=== PATIENT | male | born 1960 | race African-American/Black ===

== ENCOUNTER → 2017-05-08 | Outpatient (CLI) | payer MEDICAID ==
[~2017-05-08] MED LIST: ADVA100A INH; ALBU.5I NEB; AMLO5TAB2 PO; ASPI81CH PO; ATOR40TA16 PO; BUSP5TAB PO; CLAR10CA3 PO; COZA25TA PO; FLUT1SPR5 EACH NARE; GABA300C5 PO; HYDR-3516 PO; METF500T PO; NEBULIZER1 MI1 NEB; OLOP1DRO EACH EYE; RANI150T PO; SILD20TA11 PO; TAMS5CAP PO; TRAM50TA PO; TRIA0.5O TOPICAL; VENTAER INH
[2017-05-08 12:19] LABS: AUTOMATED NEUTROPHIL # 8.4 TH/MM3 (1.8-7.7); BASOPHIL # 0.1 TH/MM3 (0-0.2); BASOPHIL % 0.5 % (0.0-2.0); EOSINOPHIL # 0.1 TH/MM3 (0-0.4); HEMO FLAGS DIFF FINAL; LYMPH % 23.4 % (9.0-44.0); LYMPHOCYTE # 2.9 TH/MM3 (1.0-4.8); MEAN CELL VOLUME 86.3 FL (80.0-100.0); MEAN CORPUSCULAR HEMOGLOBIN 28.8 PG (27.0-34.0); MEAN CORPUSCULAR HGB CONC 33.4 % (32.0-36.0); MONO % 6.7 % (0.0-8.0); NEUT % 68.4 % (16.0-70.0); PLATELET COUNT 291 TH/MM3 (150-450); RED BLOOD COUNT 4.51 MIL/MM3 (4.50-5.90); RED CELL DISTRIBUTION WIDTH 13.1 % (11.6-17.2); WHITE BLOOD COUNT 12.3 TH/MM3 (4.0-11.0)
== END ==
LOC: PHPRE 11:41
PROVIDERS: ATTEND Orthopaedic Surgery
DX: Z01.810 Encounter for preprocedural cardiovascular examination (principal); Z01.812 Encounter for preprocedural laboratory examination; M75.122 Complete rotator cuff tear or rupture of left shoulder, not specified as traumatic; M19.019 Primary osteoarthritis, unspecified shoulder
CPT/HCPCS: 36415; 85025

== ENCOUNTER 2017-05-11 06:36 | Observation (INO) | payer MEDICAID ==
[~2017-05-11] VITALS: Ht 167.6 cm; Wt 136.6 kg
[2017-05-11] VITALS (9 sets, daily range): BP systolic 121–133; BP diastolic 72–80; PULSE 75–92; RESP 18–20; TEMP 97.2–97.6; O2SAT 94–96
[~2017-05-11 06:36] MED LIST changes: -HYDR-3516 PO; -NEBULIZER1 MI1 NEB; -SILD20TA11 PO; -TRAM50TA PO; -TRIA0.5O TOPICAL
[2017-05-11] MEDS ORDERED: BUPIVACAINE/EPINEPHRINE 0.5% PF 10 ML VIAL ONE (07:13)
[2017-05-11] MEDS ORDERED: CLINDAMYCIN PHOS 900 MG/6 ML VIAL ONE (07:28)
[2017-05-11] MEDS ORDERED: VANCOMYCIN HCL 1000 MG VIAL ONE (07:28)
[2017-05-11] MEDS ORDERED: SODIUM CHLOR 0.9% 250 ML INJ 250 ML ONE (07:28)
[2017-05-11] MEDS ORDERED: SODIUM CHLORIDE 0.9% INJ 100 ML ONE ×2 (07:29→08:48)
[2017-05-11] MEDS ORDERED: MIDAZOLAM HCL 2 MG/2 ML VIAL ONE (07:53)
[2017-05-11] MEDS ORDERED: DEXAMETHASONE SOD PHOS 4 MG/ML VIAL ONE (07:53)
[2017-05-11] MEDS ORDERED: POVIDONE IODINE 5% (ANTISEPSIS KIT) 4 APPLICATIONS EACH NARE PRN (08:30)
[2017-05-11] MEDS ORDERED: INSULIN HUMAN REGULAR 1,000 UNITS/10 ML VIAL SQ PRN (08:30)
[2017-05-11] MEDS ORDERED: CHLORHEXIDINE GLUCONATE 2 % 1 PACK (2 CLOTHS) TOPICAL PRN (08:30)
[2017-05-11] MEDS ORDERED: METOPROLOL TARTRATE 25 MG TAB PO PRN (08:30)
[2017-05-11] MEDS ORDERED: LACTATED RINGER'S 1000 ML IV PRN (08:30)
[2017-05-11] MEDS ORDERED: SODIUM CHLORID 0.9% 500 ML IV PRN (08:30)
[2017-05-11] MEDS ORDERED: CHLORHEXIDINE GLUCONATE 4% SOLN 120 ML BTL TOPICAL SCH (08:45)
[2017-05-11] MEDS ORDERED: CLINDAMYCIN 900 MG/NS 100 ML IV SCH ×2 (08:45)
[2017-05-11] MEDS ORDERED: VANCOMYCIN 500 MG VIAL ONE (08:48)
[2017-05-11] MEDS ORDERED: VANCOMYCIN 1500 MG/NS 500 ML (for 85-99 kg) IV SCH ×2 (09:00)
[2017-05-11] MEDS ORDERED: KETOROLAC TROMETHAMINE 30 MG/ML (IVP) VIAL IM PRN (11:15)
[2017-05-11] MEDS ORDERED: ONDANSETRON HCL 4 MG/2 ML VIAL IV PUSH PRN (11:15)
--- NOTE | 2017-05-11 11:36 | MP ---
cc: YIMI MORALES M.D. DATE OF SURGERY: 05/11/[address] Yimi Morales. PREOPERATIVE DIAGNOSIS 1. Rotator cuff tear, left shoulder. 2. Osteoarthritis of the acromioclavicular joint, left shoulder. 3. Impingement syndrome, chronic, left shoulder. POSTOPERATIVE DIAGNOSIS 1. Rotator cuff tear, left shoulder. 2. Osteoarthritis of the acromioclavicular joint, left shoulder. 3. Impingement syndrome, chronic, left shoulder. PROCEDURE Anterior decompression with repair chronic rotator cuff tear and excision of distal clavicle. DETAILS OF PROCEDURE The patient was first placed on the operating table in the supine position. Adequate general anesthesia was administered by the anesthesiologist. The patient had already received a shoulder block in the holding unit. The patient was placed in a modified beach-chair position with a pad under the shoulder blade. The shoulder was then prepped and draped in the usual sterile fashion. A curved anterior superior incision was carried out for approximately 1 to 1-1/2 inches over the midportion between the acromial process and the acromioclavicular joint. The incision was taken down through the subcutaneous tissues and bleeding points were electrocauterized. The fascia was incised. The acromioclavicular joint was further exposed using sharp and blunt dissection. The disk between the joint did get excised as well which was extremely thick in nature. I also noted that there was some instability of the AC joint with any type of motion. The end of the distal clavicle was obviously eroded with severe changes of arthritis. 1 cm to 1.5 cm of distal clavicle was then excised using a power saw supplemented by hand instruments. The edges were then smoothed with the same instruments. The subclavicular space was then thoroughly irrigated and aspirated of all fluid. This allowed for greater exposure now of the acromial process which was extremely thickened and almost one inch in thickness causing severe impingement. A blunt retractor was placed under the surface after the additional fibers of the anterior deltoid were excised with electrocautery. The undersurface was then thinned as much as possible with a high-speed power bur. This allowed for complete exposure of the rotator cuff. There was a longitudinal tear through its fibers which required #2 FiberWire repair. With rotation the remainder of the rotator cuff did appear to be intact. After final further decompression the deltoid muscle was repaired with interrupted sutures of the same #2 FiberWire. The subcutaneous tissue was closed with running 3-0 Vicryl and skin edges approximated with a running 4-0 subcuticular suture. Sponge counts, needle counts and instrument counts were reported correct x2. The estimated blood loss was 25 cc. The patient tolerated the procedure well and was transferred to the recovery room in satisfactory and stable condition. He did have preoperative determination of a history of sleep apnea with no PAP machine present and we therefore elected to place him overnight for observation with discharge in the a.m. This was explained to the patient before going to sleep. Yimi Morales MD TJ/IRAJ /10:47 AM /11:16 AM
[2017-05-11] MEDS ORDERED: LACTATED RINGER'S 1000 ML INJ 1,000 ML IV ONE (12:00)
[2017-05-11] MEDS ORDERED: PROPOFOL 200 MG/20 ML AMP IV ONE (12:00)
[2017-05-11] MEDS ORDERED: ONDANSETRON HCL 4 MG/2 ML VIAL IV PUSH ONE (12:00)
[2017-05-11] MEDS: ACETAMINOPHEN/HYDROcodone 325 MG/5 MG TAB PO PRN ×2 (14:19→21:13)
[2017-05-11] MEDS ORDERED: DO NOT ADM ANY ANTICOAGULANT DRUGS PRN (14:30)
[2017-05-12] MEDS: ACETAMINOPHEN/HYDROcodone 325 MG/5 MG TAB PO PRN (08:46)
[2017-05-12 09:04] VITALS: BP 126/79; PULSE 71; RESP 22; TEMP 97.5; O2SAT 97
[2017-05-12 09:46] VITALS: RESP 18
[2017-05-16] MEDS ORDERED: HYDR-3516 PO (08:20)
[2017-05-28] MEDS ORDERED: TRIA0.5O TOPICAL (13:28)
== END 2017-05-12 10:55 | disposition home or self-care (01) ==
LOC: PHSDC 06:36 → PHEDA 12:57 → PH3A 13:07
PROVIDERS: ADMIT Orthopaedic Surgery; ATTEND Orthopaedic Surgery
DX: M75.102 Unspecified rotator cuff tear or rupture of left shoulder, not specified as traumatic (principal); M19.012 Primary osteoarthritis, left shoulder; M75.42 Impingement syndrome of left shoulder; I10 Essential (primary) hypertension; E11.9 Type 2 diabetes mellitus without complications; N40.0 Benign prostatic hyperplasia without lower urinary tract symptoms; G47.30 Sleep apnea, unspecified; F17.200 Nicotine dependence, unspecified, uncomplicated
CPT/HCPCS: 01610; 23120; 23412; 64418; G0378; J1100; J2250; J2405; J3010; J3370; J7040; J7050; J7120

== ENCOUNTER 2017-12-02 06:40 | Emergency (ER) | payer MEDICAID ==
[~2017-12-02] VITALS: Ht 167.6 cm; Wt 120.0 kg
[~2017-12-02 06:40] MED LIST changes: +ASPI-516 PO; -ASPI81CH PO; +HYDR-3516 PO; +TRIA0.5O TOPICAL
[2017-12-02 06:42] VITALS: BP 160/85; PULSE 80; RESP 22; TEMP 98.2; O2SAT 98
[2017-12-02] MEDS ORDERED: SODIUM CHLOR 0.9% 1000 ML INJ 1,000 ML IV ONE (07:15)
[2017-12-02] MEDS ORDERED: ONDANSETRON HCL 4 MG/2 ML VIAL IV PUSH ONE (07:15)
--- NOTE | 2017-12-02 07:22 | PD ---
HPI Chief Complaint: Cold / Flu Symptoms Time Seen by Provider: 07:04 Travel History International Travel<30 days: No Contact w/Intl Traveler<30days: No Traveled to known affect area: No History of Present Illness HPI 57 years old male complains of sore throat, coughing congestion, nausea vomiting diarrhea. Patient states that the sore throat started 4 days ago. Patient started having nausea vomiting diarrhea intermittently for the past 3 days. Patient started having productive cough for the past 3 days. Patient complaint headache body ache. Patient denies any chest pain shortness of breath. Patient denies abdominal pain. Patient denies any dysuria or frequency. Patient denies any fever chills. Patient complains generalized malaise and weakness. Patient has history of hypertension, diabetes, hyperlipidemia. Patient has inhaler nebulizer at home as needed. PFSH Past Medical History Arthritis: Yes Blood Disorders: No Cancer: No Cardiovascular Problems: No High Cholesterol: Yes COPD: Yes Diabetes: Yes Patient Takes Glucophage: Yes (12/01/2017 2100) Diminished Hearing: No Endocrine: No Genitourinary: No Headaches: Yes (MIGRAINE) Hepatitis: No Hiatal Hernia: No Hypertension: Yes Immune Disorder: No Musculoskeletal: Yes (OA in back, legs and arms) Neurologic: No Psychiatric: Yes (ANXIETY) Reproductive: No Respiratory: Yes (ASTHMA, COPD, SLEEP APNEA) Immunizations Current: Yes Migraines: Yes Sleep Apnea: Yes Thyroid Disease: No Tetanus Vaccination: < 5 Years Influenza Vaccination: Yes Past Surgical History AICD: No Joint Replacement: No Pacemaker: No Other Surgery: No Social History Alcohol Use: No Tobacco Use: No (quit 02/14/2014) Substance Use: No Allergies-Medications (Allergen,Severity, Reaction): Coded Allergies: penicillin G (Verified Allergy, Severe, Swelling, 12/02/17) Reported Meds & Prescriptions Reported Meds & Active Scripts Active Triamcinolone Topical 0.5 % Oint 1 Applic TOPICAL BID Buspirone (Buspirone HCl) 5 Mg Tab 5 Mg PO BID Gabapentin 300 Mg Cap 300 Mg PO TID Advair Diskus Inh (Fluticasone-Salmeterol Inh) 100-50 Mcg/Blist Aer 1 Puff INH BID Rinse mouth after use. Ranitidine (Ranitidine HCl) 150 Mg Tab 150 Mg PO DAILY Amlodipine (Amlodipine Besylate) 5 Mg Tab 5 Mg PO DAILY Flomax (Tamsulosin HCl) 0.4 Mg Cap 0.4 Mg PO HS Cozaar (Losartan Potassium) 25 Mg Tab 25 Mg PO DAILY Flonase Nasal [place] (Fluticasone Nasal [place]) 50 Mcg/Act [place] 100 Mcg EACH NARE BID Atorvastatin (Atorvastatin Calcium) 40 Mg Tab 40 Mg PO HS Metformin (Metformin HCl) 500 Mg Tab 1,000 Mg PO BIDPC With meals Albuterol Neb (Albuterol Sulfate) 2.5 Mg/0.5 Ml Neb 2.5 Mg NEB Q4HR NEB PRN Albuterol Sulfate Inhalation Solution is concentrated & must be diluted. Read complete instructions before using. [place] Opth 0.7% (Olopatadine HCl) 0.7 % Drops 1 Drop EACH EYE DAILY Reported Hydrocodone-Acetaminophen 5-325 mg Tab 1 Tab PO Q4H PRN Claritin (Loratadine) 10 Mg Cap 10 Mg PO DAILY Aspirin 81 Mg Chew 81 Mg PO DAILY Ventolin Hfa 18 GM Inh (Albuterol Sulfate) 90 Mcg/Act Aer 2 Puff INH Q4-6H PRN Review of Systems General / Constitutional: No: Fever Eyes: No: Visual changes HENT: Positive: Headaches Cardiovascular: No: Chest Pain or Discomfort Respiratory: Positive: Cough, No: Shortness of Breath Gastrointestinal: Positive: Nausea, Vomiting, Diarrhea, No: Abdominal Pain Genitourinary: No: Dysuria Musculoskeletal: No: Pain Skin: No Rash Neurologic: No: Weakness Psychiatric: No: Depression Endocrine: No: Polydipsia Hematologic/Lymphatic: No: Easy Bruising Physical Exam Narrative GENERAL: Well-nourished, well-developed patient. SKIN: Focused skin assessment warm/dry. HEAD: Normocephalic. EYES: No scleral icterus. No injection or drainage. Throat: Nonerythematous. NECK: Supple, trachea midline. No JVD or lymphadenopathy. CARDIOVASCULAR: Regular rate and rhythm without murmurs, gallops, or rubs. RESPIRATORY: Breath sounds equal bilaterally. No accessory muscle use. GASTROINTESTINAL: Abdomen soft, non-tender, nondistended. MUSCULOSKELETAL: No cyanosis, or edema. BACK: Nontender without obvious deformity. No CVA tenderness. Neurologic exam normal. Data Data Last Documented VS Vital Signs Date Time Temp Pulse Resp B/P (MAP) Pulse Ox O2 Delivery O2 Flow Rate FiO2 12/02/17 07:24 98 Room Air 12/02/17 06:42 98.2 80 22 160/85 (110) Orders Orders Complete Blood Count With Diff (12/02/17 07:12) Comprehensive Metabolic Panel (12/02/17 07:12) Lipase (12/02/17 07:12) Chest, Single Ap (12/02/17 07:12) Iv Access Insert/Monitor (12/02/17 07:12) Ecg Monitoring (12/02/17 07:12) Oximetry (12/02/17 07:12) Sodium Chlor 0.9% 1000 Ml Inj (Ns 1000 M (12/02/17 07:15) Ondansetron Inj (Zofran Inj) (12/02/17 07:15) Albuterol-Ipratropium Neb (Duoneb Neb) (12/02/17 07:45) Labs Laboratory Tests Test 12/02/17 07:25 White Blood Count 9.0 TH/MM3 Red Blood Count 4.96 MIL/MM3 Hemoglobin 14.2 GM/DL Hematocrit 42.1 % Mean Corpuscular Volume 85.1 FL Mean Corpuscular Hemoglobin 28.6 PG Mean Corpuscular Hemoglobin Concent 33.7 % Red Cell Distribution Width 13.7 % Platelet Count 306 TH/MM3 Mean Platelet Volume 9.0 FL Neutrophils (%) (Auto) 54.8 % Lymphocytes (%) (Auto) 32.9 % Monocytes (%) (Auto) 8.1 % Eosinophils (%) (Auto) 3.4 % Basophils (%) (Auto) 0.8 % Neutrophils # (Auto) 5.0 TH/MM3 Lymphocytes # (Auto) 3.0 TH/MM3 Monocytes # (Auto) 0.7 TH/MM3 Eosinophils # (Auto) 0.3 TH/MM3 Basophils # (Auto) 0.1 TH/MM3 CBC Comment DIFF FINAL Differential Comment Blood Urea Nitrogen 14 MG/DL Creatinine 1.16 MG/DL Random Glucose 116 MG/DL Total Protein 7.8 GM/DL Albumin 3.6 GM/DL Calcium Level 8.8 MG/DL Alkaline Phosphatase 100 U/L Aspartate Amino Transf (AST/SGOT) 34 U/L Alanine Aminotransferase (ALT/SGPT) 21 U/L Total Bilirubin 0.5 MG/DL Sodium Level 139 MEQ/L Potassium Level 5.5 MEQ/L Chloride Level 106 MEQ/L Carbon Dioxide Level 24.7 MEQ/L Anion Gap 8 MEQ/L Estimat Glomerular Filtration Rate 79 ML/MIN Lipase 90 U/L MDM Medical Decision Making Medical Screen Exam Complete: Yes Emergency Medical Condition: Yes Interpretation(s) Last Impressions Chest X-Ray 12/02/17 0712 Signed Impressions: Service Date/Time: Saturday, December 02, 2017 07:22 - CONCLUSION: No acute disease. John Almeida MD 8:37 AM. CBC within normal limits. CMP potassium 5.5. Slight hemolysis noted. GFR 79. Glucose 116. Differential Diagnosis Differential diagnosis including URI, pharyngitis, bronchitis, pneumonia, gastroenteritis, dehydration, electrolyte imbalance. Narrative Course 57 years old male with sore throat, coughing, nausea vomiting diarrhea. Normal saline solution 1 L IV bolus. Zofran 4 mg IV. Diagnosis Primary Impression: Viral syndrome Patient Instructions: General Instructions Additional Instructions: Zofran as needed for nausea vomiting. [id number] cough medication as needed. [id number] Imodium for diarrhea as needed.. Return if persistent problem or worse. Med/Other Pt SpecificInfo: Prescription(s) given Scripts Ondansetron Odt (Zofran Odt) 4 Mg Tab 4 MG SL Q6HR Y for Nausea/Vomiting, #10 TAB 0 Refills Prov: David Miramontes MD 12/02/17 Disposition: 01 DISCHARGE HOME Condition: Stable David Miramontes MD Dec 02, 2017 07:22
[2017-12-02 07:24] VITALS: O2SAT 98
--- NOTE | 2017-12-02 07:37 | RADRPT ---
EXAM DATE/TIME: 12/02/2017 07:22 [facility] COMPARISON: CHEST SINGLE AP, August 05, 2016, 5:18. INDICATIONS : Cough MEDICAL HISTORY : Chronic obstructive pulmonary disease. SURGICAL HISTORY : None. ENCOUNTER: Initial ACUITY: 4 - 6 days PAIN SCORE: 0/10 LOCATION: Bilateral chest FINDINGS: A single view of the chest demonstrates the lungs to be symmetrically aerated without evidence of mas s, infiltrate or effusion. The cardiomediastinal contours are unremarkable. Osseous structures are intact. CONCLUSION: No acute disease. John Almeida MD on December 02, 2017 at 7:34 Board Certified Radiologist. This report was verified electronically.
[2017-12-02] MEDS ORDERED: RESP: ALBUTEROL 2.5 MG/IPRATROPIUM 0.5 MG NEB (SCH) INH ONE (07:45)
[2017-12-02 07:53] LABS: BASOPHIL # 0.1 TH/MM3 (0-0.2); BASOPHIL % 0.8 % (0.0-2.0); EOSINOPHIL # 0.3 TH/MM3 (0-0.4); EOSINOPHIL % 3.4 % (0.0-4.0); HEMATOCRIT 42.1 % (39.0-51.0); HEMOGLOBIN 14.2 GM/DL (13.0-17.0); LYMPH % 32.9 % (9.0-44.0); MEAN CELL VOLUME 85.1 FL (80.0-100.0); MEAN CORPUSCULAR HEMOGLOBIN 28.6 PG (27.0-34.0); MEAN CORPUSCULAR HGB CONC 33.7 % (32.0-36.0); MONO % 8.1 % (0.0-8.0); MONOCYTE # 0.7 TH/MM3 (0-0.9); NEUT % 54.8 % (16.0-70.0); PLATELET COUNT 306 TH/MM3 (150-450); RED BLOOD COUNT 4.96 MIL/MM3 (4.50-5.90); RED CELL DISTRIBUTION WIDTH 13.7 % (11.6-17.2)
[2017-12-02 08:13] LABS: ALKALINE PHOSPHATASE 100 U/L (45-117); TOTAL BILIRUBIN ADULT 0.5 MG/DL (0.2-1.0); TOTAL PROTEIN 7.8 GM/DL (6.4-8.2)
[2017-12-02 08:18] LABS: ALBUMIN 3.6 GM/DL (3.4-5.0); ALT (GPT) 21 U/L (12-78); AST (GOT) 34 U/L (15-37); BICARBONATE 24.7 MEQ/L (21.0-32.0); BLOOD UREA NITROGEN 14 MG/DL (7-18); CALCIUM 8.8 MG/DL (8.5-10.1); CHLORIDE 106 MEQ/L (98-107); CREATININE 1.16 MG/DL (0.60-1.30); GLOMERULAR FILTRATION RATE 79 ML/MIN (>89); GLUCOSE,RANDOM 116 MG/DL (74-106); SODIUM (NA) 139 MEQ/L (136-145)
[2017-12-02] MEDS ORDERED: ZOFR4TAB3 SL (08:43)
== END 2017-12-02 10:05 | disposition home or self-care (01) ==
LOC: NEPC 06:40
DX: B34.9 Viral infection, unspecified (principal); I10 Essential (primary) hypertension; E11.9 Type 2 diabetes mellitus without complications; E78.5 Hyperlipidemia, unspecified; J44.9 Chronic obstructive pulmonary disease, unspecified; M19.90 Unspecified osteoarthritis, unspecified site; E78.00 Pure hypercholesterolemia, unspecified; F41.9 Anxiety disorder, unspecified; G47.30 Sleep apnea, unspecified
CPT/HCPCS: 71045; 80053; 83690; 85025; 94664; 96361; 96374; 99284; J2405; J7030